=== PATIENT | male | born 1980 | race Caucasian/White ===

== ENCOUNTER 2024-10-30 23:49 | Emergency (ER) | payer BC, SELFPAY ==
[2024-10-30 23:56] VITALS: BP 145/95
[2024-10-31 00:30] LABS: Urine Albumin 2+ (Neg - Trace); Urine Bilirubin Negative (Negative); Urine Character Clear (Clear); Urine Color Yellow; Urine Glucose Negative (Negative); Urine Ketone Negative (Negative); Urine Leukocyte Negative (Negative); Urine Nitrite Negative (Negative); Urine Occult Blood 1+ (Negative); Urine Urobilinogen Negative (Neg - 1+)
[2024-10-31 00:32] LABS: % Basophils 1.3 % (0-2); % Eosinophils 2.3 % (0-6); % Immature Granulocytes 0.3 % (0-0.5); % Lymphocytes 20.9 % (20.5-51.1); % Monocytes 8.8 % (1.7-9.3); % Neutrophils 66.4 % (42.2-75.2); Absolute Basophils 0.1 10^3/uL (0-0.2); Absolute Eosinophils 0.3 10^3/uL (0-0.7); Absolute Lymphocytes 2.2 10^3/uL (1.2-3.4); Absolute Monocytes 0.9 10^3/uL (0.1-0.6); Absolute Neutrophils 7.1 10^3/uL (1.4-6.5); Hematocrit 45.9 % (39.0-52.0); Hemoglobin 15.6 g/dL (13.0-18.0); Mean Corpuscular Hgb 29.1 pg (27.0-31.0); Mean Corpuscular Volume 85.5 fL (80.0-94.0); Mean Platelet Volume 9.5 fL (7.4-10.4); Nucleated Red Blood Cells % 0 % (-); Platelet Count 268 10^3/uL (130-400); Red Blood Cell Count 5.37 10^6/uL (4.70-6.10); Red Cell Dist. Width 12.8 % (11.5-14.5); White Blood Cell Count 10.7 10^3/uL (4.8-10.8)
[2024-10-31 00:38] LABS: Urine Squamous Cell 0-2 /LPF (Few)
[2024-10-31 00:39] LABS: Urine Red Blood Cell 0-2 /HPF (0-2); Urine White Cell 0-2 /HPF (0-5)
[2024-10-31 00:54] LABS: ALT (SGPT) 34 U/L (0-50); AST (SGOT) 26 U/L (17-59); Albumin 4.3 g/dl (3.5-5.0); Alkaline Phosphatase 62 U/L (38-126); Blood Urea Nitrogen 23 mg/dl (9-20); Calcium 9.7 mg/dl (8.4-10.2); Carbon Dioxide 24 mmol/L (22-30); Chloride 106 mmol/L (98-107); Glucose 141 mg/dl (70-99); Lipase 122 U/L (23-300); Potassium 4.9 mmol/L (3.5-5.1); Sodium 138 mmol/L (135-145); Total Bilirubin 0.6 mg/dl (0.2-1.3); Total Protein 7.3 g/dl (6.3-8.2); eGFR > 60.00
[2024-10-31 01:58] VITALS: BMI 42.2
--- NOTE | 2024-10-31 02:09 | ED.GENMED ---
History of Present Illness
General
Chief Complaint: Flank Pain
Source: patient
Time Seen by Provider: 10/31/24 01:56
History of Present Illness
History of Present Illness:
44-year-old male presents emergency department with complaints of nausea and vomiting that started on Saturday. That is since resolved but he still has mild to moderate anorexia. Yesterday, he developed discomfort in the right upper quadrant that is
gotten progressively worse which prompted his visit here. He describes eating a pretzel this morning but otherwise has had very little to eat. No vomiting today. He denies fever, chills, chest pain, dyspnea, back or flank pain (despite triage
note), lower abdominal pain, urinary symptoms, or other complaints. The pain is constant without exacerbating relieving factors. There is no radiation
Past History
Past History
ED Past Medical History: HTN, Hypercholesterolemia and Other (Borderline diabetes)
ED Past Surgical History: Orthopedic and Other (Hernia)
Social History
Tobacco: Former smoker
Drug: None
Personal:
Living: alone
Phy Exam
Physical Exam
Physical Exam:
GENERAL: Alert , in no apparent distress
EYE: pupils equal and reactive
NECK: Supple, no significant adenopathy.
ENT: o/p clr, mmm.
CARDIAC: Regular rate and rhythm .
LUNGS: Clear breath sounds bilaterally, no acute respiratory distress, no wheezes/rales/rhonchi
ABDOMEN: Soft, moderate right upper quadrant tenderness, no r/g, no cvat
NEUROLOGICAL: Alert and oriented, no focal neuro deficits
SKIN: Warm and dry, skin intact.
MUSCULOSKELETAL: No edema, well perfused.
PSYCH: Normal and appropriate interaction.
Scores
[id number] Score for Afib Stroke Risk
Age in Years (65=0, 65-74=1, >/=75=2): <65
Sex (Female=+1): Male
Congestive Heart Failure History (Yes=+1): No
Hypertension History (Yes=+1): Yes
Stroke/TIA/Thromboembolism History (Yes=+2): No
Vascular Disease History (Yes=+1): No
Diabetes Mellitus (Yes=+1): Yes
Score: 2
Anticoagulation Recommendations: Recommend anticoagulation (as validated in nonvalvular fib)
Course
Orders/Labs/Results
Orders:
Orders
10/31/24 00:02
IV Insert/Care/Rem.- Treatment PRN
10/31/24 00:23
Complete Blood Count/With Diff Urgent
Comprehensive Metabolic Panel Urgent
Lipase Urgent
Urinalysis Reflex To Culture Urgent
Date Specimen was Collected: 10/31/24
Time Specimen was Collected: 00:02
Urine Microscopic Reflex Cult Urgent
10/31/24 02:08
Ketorolac [Toradol] 15 mg IV NOW STA
US Abdomen Complete/Upper Urgent
Comment:
Reason For Exam: pain
10/31/24 03:56
EKG [Electrocardiogram (*1)] Urgent
Reason for Study: Atrial Flutter
EKG- Treatment ONCE
10/31/24 05:34
Apixaban [Eliquis] 5 mg PO NOW STA
Abnormal Lab Results
10/31/24
00:23
Absolute Neuts (auto) 7.1 H 10^3/uL
(1.4-6.5)
Absolute Monos (auto) 0.9 H 10^3/uL
(0.1-0.6)
BUN 23 H mg/dl
(9-20)
Glucose 141 H mg/dl
(70-99)
Ur Occult Blood Reflex 1+ A
(Negative)
Urine Albumin (Reflex) 2+ A
(Neg - Trace)
10/31/24 00:23
10/31/24 00:23
Vital Signs
Initial and Last Documented VS:
Initial Vital Signs
Temp Pulse Resp BP Pulse Ox
98 F 90 20 145/95 98
10/30/24 23:56 10/30/24 23:56 10/30/24 23:56 10/30/24 23:56 10/30/24 23:56
Last Documented Vital Signs
Temp Pulse Resp BP Pulse Ox
98 F 86 28 131/100 96
10/30/24 23:56 10/31/24 05:58 10/31/24 05:58 10/31/24 06:00 10/31/24 05:45
*Critical Care Note
Total Time (30-74mins, 75-104mins- exclusive of procedures): Not Applicable
Update Note
Update Note:
Patient presents to the Emergency Department with __abdominal pain
Number and Complexity of Problems Addressed at the Encounter
� Chronic conditions affecting care:
� Acute Exacerbation and/or Progression of Chronic Illness:
� Differential Diagnosis includes: But not limited to cholelithiasis, cholecystitis, kidney stone, IVF, bowel obstruction, etc. etc. etc.
Amount and/or Complexity of Data to be Reviewed and Analyzed
� I performed an independent evaluation of and my interpretation is:
EKG: Read by me, atrial fibrillation, rate controlled, no acute ischemia
CT:
Xrays:
Laboratory Studies:
Other: Ultrasound gallbladder normal sonographic Linder's negative CBD measures 5 mm which is normal. Visualized pancreas unremarkable, liver echogenicity and texture normal, kidneys normal, visualized abdominal aorta and IVC
normal, spleen unremarkable. Vision left
� Review of other/old records reveals:
� Clinical information was obtained by an independent historian:
� Prescriptions/Medications Considered but not given:
� Further testing considered but not performed:
Risk of Complications and/or Morbidity or Mortality of Patient Management
� Social determinants of health affecting care:
� Discussion with other providers (PCP, Hospitalists, Consultants, etc):
� Escalation of care including admission/observation vs risk of discharge considered: Workup generally unremarkable here� Pain is on the right upper side, was noted to be flank pain in triage although patient denies here.
Nonetheless, no hydro or stone noted on ultrasound. He does have microscopic hematuria and will need further workup regarding, patient denies dysuria, urgency, frequency or gross hematuria. Incidentally patient noted to be in rate controlled
A-fib. This is not necessarily a new diagnosis for him, he states he had this years ago and was on anticoagulation but no longer. He was on Eliquis in the past. Even his CHADS2 score, anticoagulation is recommended and therefore we will restart
his Eliquis with instructions for close cardiology follow-up. Repeat exam abdomen soft without tenderness. Symptoms may be related to his GLP-1 med. Discussed with him importance of follow-up and reasons to return to the ER
ED Attending Note
-
Portions of this chart may have been created with voice recognition software.� Occasional wrong word or��sound alike� substitutions may have occurred due to the inherent limitations of voice recognition software.
Discharge Plan
Departure
Patient Disposition: Home (Routine Discharge)
Date of Disposition: 10/31/24
Time of Disposition: 05:36
Patient with high blood pressure during this ER visit?: Yes
Condition: Good
Discharge Problem:
Atrial fibrillation, Abdominal pain
Instructions: Blood in the urine (hematuria) in adults, Abdominal pain in adults - Discharge instructions, Atrial fibrillation - Discharge instructions, BLOOD PRESSURE
Prescriptions:
New
Eliquis 5 mg tablet
5 mg PO BID Qty: 60 0RF
No Action
carvedilol 25 mg Tablet
25 mg PO BID
tramadol 50 mg Tablet
50 mg PO DAILY
lisinopril 10 mg Tablet
10 mg PO DAILY
rosuvastatin 10 mg Tablet
10 mg PO DAILY
Mounjaro 5 mg/0.5 mL Pen Injector
5 mg SC QWEEK
Referrals:
Jose Daniel Kwok MD [Active] - Tomorrow
Curtis Painting MD [Family Provider] - Tomorrow
Stand Alone Forms: Return to Work
Activity Restrictions/Additional Instructions:
PLEASE SEE YOUR FAMILY DOCTOR THIS WEEK. PLEASE MAKE AN APPOINTMENT WITH THE QUICK SERVICE TECHNICIAN PROMPTLY. IF YOU DEVELOP DIZZINESS, BLEEDING, CHEST PAIN, SHORTNESS OF BREATH, RECURRENT NEW OR PERSISTENT ABDOMINAL PAIN, VOMITING, FEVER, CHILLS, OR OTHER
WORRISOME SIGNS, PLEASE RETURN TO THE ER IMMEDIATELY! OF NOTE, THERE WAS BLOOD NOTED IN YOUR URINE ON A MICROSCOPIC LEVEL. PLEASE ALERT YOUR FAMILY DOCTOR WHEN YOU SEE HIM OR HER THIS WEEK REGARDING THIS AND FURTHER MANAGEMENT.
Interventions
Interventions:
*Risk Screen - Suicide Last Done: 10/30/24 23:56
*General Assessment Last Done: 10/30/24 23:56
*Neglect/Abuse Screening Last Done: 10/30/24 23:56
*ED- Fall Risk Assessment Last Done: 10/30/24 23:56
*ED COVID-19 Vaccine History Last Done: 10/30/24 23:56
*Nursing Disposition Last Done: 10/31/24 06:05
TT-Yubpoa-Bdlssawazn Assessment Last Done: 10/31/24 01:55
ED-Male Genitourinary Assessment Last Done: 10/31/24 01:55
Discharge Date and Time
Discharge Date/Time: 10/31/24 06:05
Print Language: GIBRALTARIAN
[2024-10-31 02:13] VITALS: BP 122/89
[2024-10-31] MEDS: TORADOL 15 MG IV (03:11)
[2024-10-31 03:58] VITALS: BP 116/90
[2024-10-31 04:00] VITALS: BP 118/88
[2024-10-31 05:00] VITALS: BP 104/77
[2024-10-31] MEDS: ELIQUIS 5 MG PO (05:57)
[2024-10-31 05:58] VITALS: BP 125/108
[2024-10-31 06:00] VITALS: BP 131/100
== END 2024-10-31 06:05 | disposition home or self-care (01) ==
LOC: EMR 23:49
PROVIDERS: EMERGENCY PHYSICIAN Emergency Medicine; FAMILY PHYSICIAN Hospitalist
DX: I48.91 Unspecified atrial fibrillation (principal); R10.11 Right upper quadrant pain; I10 Essential (primary) hypertension; Z87.891 Personal history of nicotine dependence
CPT/HCPCS: 99285; 96374; 76700; 80053; 81003; 81015; 83690; 85025; 93005

== ENCOUNTER 2024-11-23 19:46 | Emergency (ER) | payer BC, SELFPAY ==
[2024-11-23 19:47] VITALS: BP 148/99
[2024-11-23 20:14] LABS: % Basophils 1.2 % (0-2); % Eosinophils 2.4 % (0-6); % Immature Granulocytes 0.2 % (0-0.5); % Lymphocytes 28.2 % (20.5-51.1); % Monocytes 9.2 % (1.7-9.3); % Neutrophils 58.8 % (42.2-75.2); Absolute Basophils 0.1 10^3/uL (0-0.2); Absolute Eosinophils 0.3 10^3/uL (0-0.7); Absolute Lymphocytes 3.2 10^3/uL (1.2-3.4); Absolute Neutrophils 6.7 10^3/uL (1.4-6.5); Hemoglobin 15.6 g/dL (13.0-18.0); Mean Corp Hgb Conc. 33.9 g/dL (33.0-37.0); Mean Corpuscular Hgb 28.9 pg (27.0-31.0); Mean Corpuscular Volume 85.3 fL (80.0-94.0); Mean Platelet Volume 9.7 fL (7.4-10.4); Nucleated Red Blood Cells % 0 % (-); Platelet Count 244 10^3/uL (130-400); Red Blood Cell Count 5.39 10^6/uL (4.70-6.10); Red Cell Dist. Width 12.9 % (11.5-14.5); White Blood Cell Count 11.3 10^3/uL (4.8-10.8)
[2024-11-23 20:31] LABS: ALT (SGPT) 38 U/L (0-50); AST (SGOT) 28 U/L (17-59); Albumin 4.3 g/dl (3.5-5.0); Alkaline Phosphatase 58 U/L (38-126); Blood Urea Nitrogen 17 mg/dl (9-20); Calcium 9.7 mg/dl (8.4-10.2); Carbon Dioxide 27 mmol/L (22-30); Chloride 104 mmol/L (98-107); Glucose 145 mg/dl (70-99); Potassium 5.3 mmol/L (3.5-5.1); Sodium 141 mmol/L (135-145); Total Bilirubin 0.5 mg/dl (0.2-1.3); Total Protein 7.2 g/dl (6.3-8.2); eGFR > 60.00
[2024-11-23 20:38] LABS: Troponin I < 0.012 ng/ml
--- NOTE | 2024-11-23 23:26 | ED.GENMED ---
History of Present Illness
General
Chief Complaint: Heart Rate Problem
Source: patient
Exam Limitations: none
Time Seen by Provider: 11/23/24 23:19
Nursing documentation reviewed up to this point in time: agreed with
History of Present Illness
History of Present Illness:
44-year-old male presents Emergency Department due to palpitations, dizziness and mild shortness of breath. He has a history of atrial fibrillation, and was seen in the emergency department with atrial fibrillation, rate controlled on 10/31/2024.
He was started on Eliquis. He is scheduled for cardioversion in [address] Ramirez.
Past History
Past History
ED Past Medical History: HTN, Hypercholesterolemia and Other (Borderline diabetes)
ED Past Surgical History: Orthopedic and Other (Hernia)
Social History
Tobacco: Former smoker
Drug: None
Personal:
Living: alone
Review of Systems
Review of Systems
Allergies reviewed?: Yes
All Other Systems: Not applicable
Constitutional: Reports no symptoms
EENT: Reports no symptoms
Respiratory: Reports trouble breathing
Cardiac: Reports palpitations
ABD/GI: Reports no symptoms
: Reports no symptoms
Musculoskeletal: Reports no symptoms
Skin: Reports no symptoms
Neurological: Reports no symptoms
Endocrine: Reports no symptoms
Hematologic/Lymphatic: Reports no symptoms
Psychiatric: Reports no symptoms
Phy Exam
Physical Exam
Physical Exam:
Physical Exam
General: no apparent distress, not acutely ill
Neck: supple. no meningeal signs. normal posterior pharynx
Heart: s1/s2 regular rate and irregular rhythm, no murmur. equal radial
pulses.
HEENT: Pupils equal round reactive to light, EOMI
Lungs: no acute respiratory distress. clear bilaterally
Abdomen: normal bowel sounds. not tender. no CVAT
Neuro: alert and oriented. no focal neurological deficits cranial nerves II through XII intact
Skin: no rash
Psychiatric: well kept. interactive and cooperative
Extremities: no edema. no calf tenderness. negative homans. good distal pulses
Course
Orders/Labs/Results
Orders:
Orders
11/23/24 19:50
Electrocardiogram (*1) Urgent
Reason for Study: Atrial Fibrillation
EKG- Treatment ONCE
11/23/24 20:07
Complete Blood Count/With Diff Urgent
Comprehensive Metabolic Panel Urgent
Troponin I Urgent
11/23/24 23:48
CR Chest - 2 Views Urgent
Comment:
Reason For Exam: short of breath
Abnormal Lab Results
11/23/24
20:07
WBC 11.3 H 10^3/uL
(4.8-10.8)
Absolute Neuts (auto) 6.7 H 10^3/uL
(1.4-6.5)
Absolute Monos (auto) 1.0 H 10^3/uL
(0.1-0.6)
Potassium 5.3 H mmol/L
(3.5-5.1)
Glucose 145 H mg/dl
(70-99)
11/23/24 20:07
11/23/24 20:07
Vital Signs
Initial and Last Documented VS:
Initial Vital Signs
Temp Pulse Resp BP Pulse Ox
98.5 F 94 16 148/99 97
11/23/24 19:47 11/23/24 19:47 11/23/24 19:47 11/23/24 19:47 11/23/24 19:47
Last Documented Vital Signs
Temp Pulse Resp BP Pulse Ox
98.5 F 92 21 109/85 97
11/23/24 19:47 11/24/24 00:45 11/24/24 00:45 11/24/24 00:34 11/24/24 00:45
MDM/Problems Addressed
Differential Diagnosis Includes:
Atrial fibrillation, CHF
MDM/Problems Addressed:
44-year-old male with atrial fibrillation. No signs of CHF. Do not suspect PE. Discharged to follow-up with cardiology on for scheduled cardioversion.
Chronic conditions affecting care: Arrhythmia
Acute Exacerbation and/or Progression of Chronic Illness: Arrhythmia
*Radiology
Radiology exam reviewed: preliminary read by ED provider (Chest x-ray no acute findings)
*Pulse Oximetry
Patient hypoxic: no
*EKG
Interpreted by ED Provider?: Yes
EKG Intrepretation Date: 11/23/24
EKG Intrepretation Time: 19:53
Interpretation: abnormal
Comparison EKG: no changes
Heart Rate: 94
Rate: normal
Rhythm: a-fib
Fleming: normal axis
Interval: normal interval
QRS Pattern: normal QRS
Ischemia: no ischemia
*Java Software Architect Interpretation
Rate: normal
Interpretation: abnormal
Heart Rate: 90
Rhythm: a-fib
*Critical Care Note
Total Time (30-74mins, 75-104mins- exclusive of procedures): Not Applicable
Data Reviewed
Review of Other/Old Records Reveals: Testing (Prior EKG shows atrial fibrillation)
Source: records
Prescriptions/Medications Considered But Not Given:
Cardioversion not indicated
Patient Management
Escalation/DeEscalation of care consider admission/obs:
admit not indicated
ED Attending Note
-
Portions of this chart may have been created with voice recognition software.� Occasional wrong word or��sound alike� substitutions may have occurred due to the inherent limitations of voice recognition software.
Discharge Plan
Departure
Patient Disposition: Home (Routine Discharge)
Date of Disposition: 11/24/24
Time of Disposition: 01:02
Patient with high blood pressure during this ER visit?: No
Condition: Good
Discharge Problem:
Atrial fibrillation
Instructions: Atrial Fibrillation (DC)
Prescriptions:
No Action
carvedilol 25 mg Tablet
25 mg PO BID
tramadol 50 mg Tablet
50 mg PO DAILY
lisinopril 10 mg Tablet
10 mg PO DAILY
rosuvastatin 10 mg Tablet
10 mg PO DAILY
Mounjaro 5 mg/0.5 mL Pen Injector
5 mg SC QWEEK
Eliquis 5 mg tablet
5 mg PO BID Qty: 60 0RF
Referrals:
Tre Ramirez MD [Active] - Call in 1-3 days for appt
Curtis Painting MD [Family Provider] -
Interventions
Interventions:
*Risk Screen - Suicide Last Done: 11/23/24 19:50
*General Assessment Last Done: 11/23/24 23:27
*Neglect/Abuse Screening Last Done: 11/23/24 19:50
*ED- Fall Risk Assessment Last Done: 11/23/24 23:27
*ED COVID-19 Vaccine History Last Done: 11/23/24 23:27
ED- Cardiac Assessment Last Done: 11/23/24 23:27
ED- Pulmonary Assessment Last Done: 11/23/24 23:27
Discharge Date and Time
Print Language: UZBEK
[2024-11-23 23:27] VITALS: BMI 42.5
[2024-11-23 23:30] VITALS: BP 123/90
[2024-11-24 00:34] VITALS: BP 109/85
[2024-11-24 01:00] VITALS: BP 120/85
== END 2024-11-24 01:40 | disposition home or self-care (01) ==
LOC: EMR 19:46
PROVIDERS: Emergency Medicine; EMERGENCY PHYSICIAN Emergency Medicine; FAMILY PHYSICIAN Hospitalist
DX: I48.91 Unspecified atrial fibrillation (principal); I10 Essential (primary) hypertension; E78.00 Pure hypercholesterolemia, unspecified; Z79.01 Long term (current) use of anticoagulants; Z87.891 Personal history of nicotine dependence
CPT/HCPCS: 99285; 71046; 80053; 84484; 85025; 93005

== ENCOUNTER 2024-11-26 09:14 | Day surgery (SDC) | payer BC, SELFPAY ==
[2024-11-26 11:02] LABS: Glucose - Point of Care 127 mg/dl (70-99)
--- NOTE | 2024-11-26 11:21 | ITS.CL.CARDI ---
Transfusion Aide - Cardioversion
Cardioversion
Procedure Report:
Date of Procedure: November 26 2024
Procedure: Cardioversion
Indication: Symptomatic atrial fibrillation
Performing Physician: Luc Orourke DO, FACC
Technique: The patient was brought to the holding area. Signed informed consent was obtained. A time out was called and performed. The patient was anesthetized by the anesthesia service. Anticoagulation status was reviewed and appropriate. R2 pads
were placed anteriorly and posteriorly. A 250 J synchronized biphasic shock failed to restore sinus rhythm. He then had 300 J synchronized biphasic shock which failed to restore sinus. He then had 360J synchronized biphasic shock which restored
normal sinus rhythm without significant bradycardia. There were no complications.
Conclusion: Uncomplicated cardioversion from atrial fibrillation to sinus rhythm.
Recommendation: Routine post cardioversion care. Continue nursing home anticoagulation.
== END 2024-11-26 12:05 | disposition home or self-care (01) ==
LOC: CATH 09:14
PROVIDERS: ATTENDING PHYSICIAN Nuclear Medicine Nuclear Cardiology; FAMILY PHYSICIAN Hospitalist; OTHER PHYSICIAN Internal Medicine Cardiovascular Disease
DX: I48.91 Unspecified atrial fibrillation (principal); Z79.01 Long term (current) use of anticoagulants; I10 Essential (primary) hypertension; E78.00 Pure hypercholesterolemia, unspecified; E11.9 Type 2 diabetes mellitus without complications; Z79.85 Long-term (current) use of injectable non-insulin antidiabetic drugs
CPT/HCPCS: 82962; 92960; 93005

== ENCOUNTER → 2024-12-07 12:37 | Outpatient (REF) | payer BC, SELFPAY ==
--- NOTE | 2024-12-07 13:45 | CARDSERVLU ---
Echocardiogram with Lumason completed after protocol screening completed. Allergies verified.
Patent IV site: __left hand___
IV site flushed with 0.9% NaCl pre and post administration.
Diluted bolus method utilized to enhance visualization of ventricular de jesus.
Total volume given: __2.0__ mL
Patient tolerated all procedures well without complications.
#22 [place] placed left hand. Lumason given. INT d/c'd. pressure held. dsg placed. No bleeding, no hematoma.
== END ==
LOC: RCS 12:37
PROVIDERS: ATTENDING PHYSICIAN Internal Medicine Cardiovascular Disease; FAMILY PHYSICIAN Hospitalist
DX: I48.0 Paroxysmal atrial fibrillation (principal)
CPT/HCPCS: 93306; Q9950